=== PATIENT | male | born 2000 | race Hispanic/Latino ===

== ENCOUNTER 2020-05-04 18:18 | Emergency (ER) | payer OTHER, SELFPAY ==
[2020-05-04 19:33] LABS: Absolute Lymphocytes (CBC) 1.5 K/uL (0.7-4.9); Basophils % 0.6 % (0-1.3); Hematocrit 45.1 % (39.6-49.0); Lymphocytes % 23.4 % (15.3-44.8); MPV 10.2 fL (7.6-11.3); RBC Red Blood Cell Count 4.53 M/uL (4.33-5.43)
[2020-05-04] MEDS ORDERED: DIAZEPAM 10 MG/2 ML INJ SYRINGE ONE (19:39)
[2020-05-04 19:43] LABS: ALT/SGPT 16 U/L (12-78); AST/SGOT 18 U/L (15-37); Albumin 4.3 g/dL (3.4-5.0); Alkaline Phosphatase 72 U/L (45-117); BUN Blood Urea Nitrogen 4 mg/dL (7-18); Bicarbonate 26 mmol/L (21-32); Bilirubin Direct 0.1 mg/dL (0-0.2); Bilirubin Total 0.5 mg/dL (0.2-1.0); Glucose Level 80 mg/dL (74-106); Potassium 3.6 mmol/L (3.5-5.1); Sodium Level 141 mmol/L (136-145)
[2020-05-04 19:47] LABS: Urine Blood TRACE (NEG); Urine Glucose NEGATIVE (NEG); Urine Protein 2+ (NEG); Urine Specific Gravity >1.030 (1.005-1.030)
[2020-05-04 19:48] LABS: Protime INR 0.97
[2020-05-04 19:56] LABS: Barbiturates NEGATIVE (NEGATIVE); Benzodiazepines POSITIVE (NEGATIVE); Cocaine NEGATIVE (NEGATIVE); METHAMPHETAM NEGATIVE (NEGATIVE); Methadone NEGATIVE (NEGATIVE); Opiates NEGATIVE (NEGATIVE); Phencyclidine NEGATIVE (NEGATIVE); THC Cannibis POSITIVE (NEGATIVE)
--- NOTE | 2020-05-04 20:29 | EDPHYS ---
Physician Documentation [facility] Name: Adolfo Funk Age: 19 yrs Sex: Male : 2000 Arrival Date: 05/04/2020 Time: 18:39 Bed 4 Private MD: ED Physician Ata Christopher HPI: 05/04 18:43 This 19 yrs old Male presents to ER via EMS with complaints of Xanax jmm Withdrawal. 18:43 The patient presents with a history of multiple seizures, that last 1 minute(s). jmm Seizure Hx: it is unknown whether or not the patient has a previous seizure history. Associated injury: The patient did not suffer any apparent associated injury. This is a 19 year old male that presents to the ED after 2 seizure like episodes. 1 occurring yesterday and 1 occurring just prior to arrival. Patient has d/c xanax 2 days ago. Denies known injury. Denies pain. . Historical: - Allergies: 18:43 No Known Allergies; iw - Immunization history:: Adult Immunizations up to date. - Social history:: Smoking status: Patient denies any tobacco usage or history of. ROS: 18:43 Constitutional: Negative for fever, chills, and weight loss, Cardiovascular: Negative jmm for chest pain, palpitations, and edema, Respiratory: Negative for shortness of breath, cough, wheezing, and pleuritic chest pain, Abdomen/GI: Negative for abdominal pain, nausea, vomiting, diarrhea, and constipation. 18:43 Neuro: Positive for seizure activity. 18:43 All other systems are negative. Exam: 18:43 Constitutional: This is a well developed, well nourished patient who is awake, alert, jmm and in no acute distress. Head/Face: atraumatic. Eyes: EOMI, no conjunctival erythema appreciated ENT: Moist Mucus Membranes Neck: Trachea midline, Supple Chest/axilla: Normal chest wall appearance and motion. Cardiovascular: Regular rate and rhythm. No edema appreciated Respiratory: Normal respirations, no respiratory distress appreciated Abdomen/GI: Non distended, soft Back: Normal ROM Skin: General appearance color normal MS/ Extremity: Moves all extremities, no obvious deformities appreciated, no edema noted to the lower extremities Neuro: Awake and alert, normal gait Psych: Behavior is normal, Mood is normal, Patient is cooperative and pleasant Vital Signs: 18:44 BP 118 / 72; Pulse 92; Resp 16; Temp 98.5; Pulse Ox 97% on R/A; Pain 6/10; iw 20:01 BP 111 / 57; Pulse 58; Resp 18; Pulse Ox 98% on R/A; ea 20:25 BP 106 / 54; Pulse 62; Resp 18; Pulse Ox 99% on R/A; ea 20:45 BP 118 / 50; Pulse 60; Resp 18; Pulse Ox 98% ; ea MDM: 18:52 Patient medically screened. [facility] 20:26 Data reviewed: vital signs, nurses notes. Counseling: I had a detailed discussion with dontae the patient and/or guardian regarding: the historical points, exam findings, and any diagnostic results supporting the discharge/admit diagnosis, lab results, the need for outpatient follow up, to return to the emergency department if symptoms worsen or persist or if there are any questions or concerns that arise at home. ED course: Patient is alert and non toxic in appearance in the ED. Patient will be prescribed valium and is advised to follow up with a pcp for management of taper. Patient is otherwise given strict return precautions. Patient understood and agrees with the plan of care. . 05/04 18:43 Order name: Acetaminophen [facility] 05/04 18:43 Order name: Basic Metabolic Panel [facility] 05/04 18:43 Order name: CBC with Diff [facility] 05/04 18:43 Order name: ETOH Level [facility] 05/04 18:43 Order name: Hepatic Function [facility] 05/04 18:43 Order name: PT-INR; Complete Time: 19:51 [facility] 05/04 18:43 Order name: Ptt, Activated; Complete Time: 19:51 [facility] 05/04 18:43 Order name: Salicylate; Complete Time: 20:01 [facility] 05/04 18:43 Order name: Urine Drug Screen; Complete Time: 20:01 [facility] 05/04 18:44 Order name: Acetaminophen Level; Complete Time: 19:46 [facility] 05/04 18:44 Order name: Basic Metabolic Panel; Complete Time: 19:46 [facility] 05/04 18:44 Order name: CBC with Automated Diff; Complete Time: 19:40 [facility] 05/04 18:44 Order name: Alcohol Serum/Plasma; Complete Time: 19:46 [facility] 05/04 18:44 Order name: Liver (Hepatic) Function; Complete Time: 19:46 [facility] 05/04 18:43 Order name: EKG; Complete Time: 18:44 [facility] 05/04 18:43 Order name: EKG - Nurse/Tech; Complete Time: 19:42 [facility] 05/04 18:43 Order name: IV Saline Lock; Complete Time: 19:21 [facility] 05/04 18:43 Order name: Labs collected and sent; Complete Time: 19:21 [facility] 05/04 18:43 Order name: Urine Dipstick-Ancillary (obtain specimen); Complete Time: 19:42 [facility] 05/04 19:43 Order name: Urine Dipstick--Ancillary (enter results) tt3 05/04 19:43 Order name: Urine Dipstick-Ancillary; Complete Time: 19:48 [facility] Administered Medications: 19:28 Drug: Valium 5 mg Route: IVP; Site: left antecubital; rr5 20:45 Follow up: Response: No adverse reaction ea Point of Care Testing: Blood Glucose: 18:44 Blood Glucose: 122 mg/dL; Ranges: Critical Glucose Levels:Adult <50 mg/dl or >400 mg/dl <40 mg/dl or >180 mg/dl Disposition: 05/05 07:02 Co-signature as Attending Physician, Ata Christopher MD. rn Disposition: 05/04/20 20:28 Discharged to Home. Impression: Adverse effect of benzodiazepines, Epilepsy and recurrent seizures. - Condition is Stable. - Discharge Instructions: Seizure, Adult. - Prescriptions for Valium 5 mg Oral Tablet - take 1 tablet by ORAL route every 8 hours As needed; 20 tablet. - Medication Reconciliation Form, Thank You Letter, Antibiotic Education, Prescription Opioid Use form. - Follow up: Private Physician; When: 2 - 3 days; Reason: Recheck today's complaints, Continuance of care, Re-evaluation by your physician. Signatures: Dispatcher [employer] [facility] Cal Jenkins PA PA jmm Williams, Irene, Ata Lanier RN, MD MD rn Antunez, Elena, RN RN ea Roque, Raymond RN RN rr5 Corrections: (The following items were deleted from the chart) 05/04 20:51 20:28 05/04/2020 20:28 Discharged to Home. Impression: Adverse effect of ea benzodiazepines; Epilepsy and recurrent seizures. Condition is Stable. Forms are Medication Reconciliation Form, Thank You Letter, Antibiotic Education, Prescription Opioid Use. Follow up: Private Physician; When: 2 - 3 days; Reason: Recheck today's complaints, Continuance of care, Re-evaluation by your physician. dontae
--- NOTE | 2020-05-04 20:29 | ER ---
Nurse's Notes [facility] Name: Adolfo Funk Age: 19 yrs Sex: Male : 2000 Arrival Date: 05/04/2020 Time: 18:39 Bed 4 Private MD: Diagnosis: Adverse effect of benzodiazepines;Epilepsy and recurrent seizures Presentation: 05/04 18:39 Chief complaint: Patient states: stopped taking xanax two days ago, feels like he is iw withdrawing, pt reports h/a nausea, chills, gf said he had an episode of seizure like behavior that lasted a minute, had a second one this afternoon. Coronavirus screen: At this time, the client does not indicate any symptoms associated with coronavirus-19. Ebola Screen: Patient negative for fever greater than or equal to 101.5 degrees Fahrenheit, and additional compatible Ebola Virus Disease symptoms Patient denies exposure to infectious person. Patient denies travel to an Ebola-affected area in the 21 days before illness onset. No symptoms or risks identified at this time. Initial Sepsis Screen: Does the patient meet any 2 criteria? No. Patient's initial sepsis screen is negative. Does the patient have a suspected source of infection? No. Patient's initial sepsis screen is negative. Risk Assessment: Do you want to hurt yourself or someone else? Patient reports no desire to harm self or others. Onset of symptoms was May 04, 2020. 18:39 Method Of Arrival: EMS: [facility] iw 18:39 Acuity: ROMINA 3 iw 18:44 Care prior to arrival: IV initiated. 18 GA, in the right forearm, Glucose check: 122. iw Historical: - Allergies: 18:43 No Known Allergies; iw - Immunization history:: Adult Immunizations up to date. - Social history:: Smoking status: Patient denies any tobacco usage or history of. Screenin:34 Abuse screen: Denies threats or abuse. Nutritional screening: No deficits noted. ea Tuberculosis screening: Fall Risk None identified. Assessment: 19:33 General: Appears in no apparent distress. Behavior is calm, cooperative, appropriate ea for age. Pain: Denies pain. Neuro: Level of Consciousness is awake, alert, obeys commands, Oriented to person, place, time. Cardiovascular: Patient's skin is warm and dry. Respiratory: Airway is patent Respiratory effort is even, unlabored, Respiratory pattern is regular, symmetrical. Derm: Skin is pink, warm \T\ dry. 20:25 Reassessment: Patient and/or family updated on plan of care and expected duration. Pain ea level reassessed. Patient is alert, oriented x 3, equal unlabored respirations, skin warm/dry/pink. Vital Signs: 18:44 BP 118 / 72; Pulse 92; Resp 16; Temp 98.5; Pulse Ox 97% on R/A; Pain 6/10; iw 20:01 BP 111 / 57; Pulse 58; Resp 18; Pulse Ox 98% on R/A; ea 20:25 BP 106 / 54; Pulse 62; Resp 18; Pulse Ox 99% on R/A; ea 20:45 BP 118 / 50; Pulse 60; Resp 18; Pulse Ox 98% ; ea ED Course: 18:39 Patient arrived in ED. iw 18:41 Triage completed. iw 18:42 Cal Jenkins PA is PHCP. [facility] 18:42 Ata Christopher MD is Attending Physician. [facility] 18:42 Arm band placed on. iw 19:21 Eve Wellington, RN is Primary Nurse. ea 19:21 Inserted saline lock: 20 gauge in left forearm, using aseptic technique. Blood dh4 collected. 19:34 Patient has correct armband on for positive identification. Bed in low position. Call ea light in reach. 20:50 No provider procedures requiring assistance completed. IV discontinued, intact, ea bleeding controlled, No redness/swelling at site. Pressure dressing applied. Administered Medications: 19:28 Drug: Valium 5 mg Route: IVP; Site: left antecubital; rr5 20:45 Follow up: Response: No adverse reaction ea Point of Care Testing: Blood Glucose: 18:44 Blood Glucose: 122 mg/dL; iw Ranges: Outcome: 20:28 Discharge ordered by . dontae 20:50 Discharged to home ambulatory, with family. ea 20:50 Condition: stable 20:50 Discharge instructions given to patient, Instructed on discharge instructions, follow up and referral plans. medication usage, Demonstrated understanding of instructions, follow-up care, medications, Prescriptions given X 1. 20:51 Patient left the ED. ea Signatures: Cal Jenkins PA PA jmm Williams, Irene, RN RN iw Eve Wellington RN RN ea Roque, Raymond, RN RN rr5 River, Diomedes 4
[2020-05-04 21:22] VITALS: TEMP 98.5
[2020-05-04 21:25] VITALS: BP 118/50; O2SAT 98
[2020-05-11] MEDS ORDERED: IBUPROFEN 100 MG/5 ML UCUP ONE (10:12)
== END 2020-05-04 20:51 | disposition home or self-care (01) ==
LOC: ER 18:18
DX: G40.802 Other epilepsy, not intractable, without status epilepticus (principal); T42.4X5A Adverse effect of benzodiazepines, initial encounter
CPT/HCPCS: 36415; 80048; 80076; 80307; 80320; 80329; 81003; 85025; 85610; 85730; 93005; 96374; 99284; J3360

== ENCOUNTER 2024-11-20 23:48 | Emergency (ER) | payer SELFPAY ==
--- OUTSIDE RECORDS SUMMARY | 2024-11-20 23:52 | XMS REPORT | Continuity of Care Document ---
Author Name Unknown Address [address] [facility] [place] [address] [facility] [place] Address [address] [facility] [address] 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 Phone Pcp, Patient Does Not Have A Primary Care Physic wendy Doctor Unassigned, [place] Attending Clinician U Kalpana Copeland Attending Clinician [phone] Lab, Ang - Db Attending Clinician Unavailable Serena Bah NP Attending Clinician [phone] SERENA BAH Attending Clinician Unavailable SERENA BAH Attending Clinician Unavailable ARCADIO VILLALTA Attending Clinician Unavailable Arcadio Villalta MD Attending Clinician [phone] Doctor Unassigned, [place] Attending Clinician U Matthias Sanchez DO Attending Clinician [phone] MATTHIAS MCGEE Attending Clinician Unavailable MATTHIAS MCGEE Admitting Clinician Unavailable Payers Payer Name Policy Type Policy Number Effective Date Expirati on Date Source Problems Condition Name Condition Details Condition Category Status Onset Date Resolution Date Last Treatment Date Treating Clinician Comments Source No known active problems No known active problems Disease [facility] Vitamin D deficiency Vitamin D deficiency Disease Active [facility] Allergies, Adverse Reactions, Alerts Allergy Name Allergy Type Status Severity Reaction(s) Onset Date Inactive Date Treating Clinician Comments Source NO KNOWN ALLERGIE S Drug Class Active [facility] Social History Social Habit Start Date Stop Date Quantity Comments Source Exposure to SARS-CoV-2 (event) Not sure [facility] Alcoholic beverage intake 2024-04-06 00:00:00 2024-04-06 00:00:00 Ex-drinker (finding) [facility] History of Social function 2024-04-05 00:00:00 2024-04-05 00:00:00 [facility] Tobacco use and exposure 2024-04-05 00:00:00 2024-04-05 00:00:00 Smokeless tobacco non-user [facility] Sex assigned at 2000 00:00:00 2000 00:00:00 [facility] Smoking Status Start Date Stop Date Source Tobacco smoking consumption unknown [facility] Never smoked tobacco [facility] Medications Ordered Medication Name Filled Medication Name Start Date Stop Date Current Medication? Ordering Clinician Indication Dosage Frequency Signature (SIG) Comments Components Source busPIRone 5 mg tablet 04-05 00:00: 00 Yes [id number] 5mg Take 1 tablet by mouth 2 (two) times daily as needed (anxiety). [facility] NaCl 0.9% (NS) bolus infusion 1,000 mL 04-03 21:30: 00 04-03 22:51 :00 No 1000mL at 999 mL/hr, 1,000 mL, IV Infusion, ONCE, 1 dose, On Wed04/03/24 at 1530, LASHAE [facility] NaCl 0.9% (NS) bolus infusion 1,000 mL 04-03 19:45: 00 04-03 20:59 :00 No 1000mL at 999 mL/hr, 1,000 mL, IV Infusion, ONCE, 1 dose, On Wed04/03/24 at 1345, LASHAE [facility] LORazepam (ATIVAN) tablet 1 mg 04-03 19:00: 00 04-03 19:04 :00 No 1mg 1 mg, Oral, ONCE, 1 dose, On Wed04/03/24 at 1300, LASHAE [facility] ondansetron (ZOFRAN (PF)) injection 4 mg 04-03 19:00: 00 04-03 19:11 :00 No 4mg 4 mg, Slow IV Push, ONCE, 1 dose, On Wed04/03/24 at 1300, Administer over 2-5 Minutes, 2 mL [facility] ondansetron 4 mg disintegrat ing tablet 04-03 00:00: 00 Yes [id number] 4mg Take 1 tablet by mouth every 8 (eight) hours as needed for Nausea and Vomiting (N/V). [facility] propranoloL 10 mg tablet 04-03 00:00: 00 04-05 00:00 :00 No [id number] 10mg Take 1 tablet by mouth 2 (two) times daily as needed for Other (anxiety). [facility] dicyclomine (BENTYL) injection 20 mg 2022-03 14:30: 00 02-07 13:42 :00 No 20mg 20 mg, Intramuscu lar, ONCE NOW, 1 dose, On 02/07/23 at 0830, Routine [facility] famotidine (PEPCID (PF)) injection 20 mg 2022-03 14:30: 00 02-07 13:41 :00 No 20mg 20 mg, Slow IV Push, ONCE NOW, 1 dose, On Wed02/07/23 at 0830, LASHAE [facility] NaCl 0.9% (NS) bolus infusion 1,000 mL 2022-03 14:15: 00 02-07 15:32 :00 No 1000mL at 999 mL/hr, 1,000 mL, IV Piggyback, ONCE, 1 dose, On Wed02/07/23 at 0815, STAT [facility] ondansetron (ZOFRAN (PF)) injection 8 mg 2022-03 13:30: 00 02-07 13:40 :00 No 8mg 8 mg, Slow IV Push, ONCE, 1 dose, On Wed02/07/23 at 0730, LASHAE [facility] famotidine (PEPCID) 20 mg tablet 2022-03 00:00: 00 Yes [id number] 20mg Take 1 tablet by mouth in the morning and 1 tablet in the evening. [facility] sucralfate 1 gram tablet 2022-03 00:00: 00 Yes [id number] 1g Take 1 tablet by mouth before meals and at bedtime. [facility] ondansetron 4 mg disintegrat ing tablet 2022-03 00:00: 00 Yes [id number] 4mg Take 1 tablet by mouth every 8 (eight) hours as needed for Nausea and Vomiting (N/V). [facility] hyoscyamine sulfate (LEVSIN/SL) 0.125 mg sublingual tablet 2022-03 00:00: [id number] 2 tablets under the tongue every 6 (six) hours as needed (Abdominal pain or cramping). [facility] Oral Electrolyte s (PEDIALYTE ADVANCED CARE) solution 2022-03 00:00: 00 Yes [id number] 500mL Take 500 mL by mouth every 6 (six) hours. [facility] LORazepam (ATIVAN) injection 1 mg 05-10 21:45: 00 05-10 20:44 :00 No 1mg 1 mg, Slow IV Push, ONCE, 1 dose, On 05/10/21 at 1545, STAT [facility] ondansetron (ZOFRAN (PF)) injection 4 mg 05-10 21:30: 00 05-10 20:27 :00 No 4mg 4 mg, Slow IV Push, ONCE, 1 dose, On 05/10/21 at 1530, LASHAE [facility] LORazepam (ATIVAN) injection 1 mg 05-10 21:30: 00 05-10 20:16 :00 No 1mg 1 mg, Slow IV Push, ONCE, 1 dose, On 05/10/21 at 1530, STAT [facility] LORazepam (ATIVAN) injection 2 mg 2021-05-10 21:15: 00 05-10 20:10 :00 No 2mg 2 mg, Slow IV Push, ONCE, 1 dose, On 05/10/21 at 1515, STAT [facility] iopamidol (ISOVUE 370-500 mL) injection 100 mL 05-10 19:00: 00 05-10 17:50 :00 No [id number] 100mL 100 mL, Intravenou s, ONCE, 1 dose, On 05/10/21 at 1300, Routine [facility] No known medications 05-10 11:17: 16 No [facility] Vital Signs Vital Name Observation Time Observation Value Comments S ource Systolic blood pressure 2024-04-05 16:15:00 120 mm[Hg] [facility] Diastolic blood pressure 2024-04-05 16:15:00 70 mm[Hg] [facility] Heart rate 2024-04-05 16:15:00 71 /min Unive [facility] Body temperature 2024-04-05 16:15:00 36.89 Amira [facility] Body height 2024-04-05 16:15:00 160 cm [facility] Body weight 2024-04-05 16:15:00 71.668 kg [facility] BMI 2024-04-05 16:15:00 27.99 kg/m2 [facility] Oxygen saturation in Arterial blood by Pulse oximetry 2024-04-05 16:15:00 97 /min [facility] Body temperature 2024-04-03 22:52:00 36.78 Amira [facility] Respiratory rate 2024-04-03 22:52:00 16 /min [facility] Oxygen saturation in Arterial blood by Pulse oximetry 2024-04-03 22:52:00 99 /min [facility] Heart rate 2024-04-03 22:52:00 100 /min [facility] Systolic blood pressure 2024-04-03 22:00:00 131 mm[Hg] [facility] Diastolic blood pressure 2024-04-03 22:00:00 70 mm[Hg] [facility] Body height 2024-04-03 18:36:00 162.6 cm [facility] Body weight 2024-04-03 18:36:00 70.308 kg [facility] BMI 2024-04-03 18:36:00 26.61 kg/m2 [facility] Systolic blood pressure 2023-02-07 16:51:00 111 mm[Hg] [facility] Diastolic blood pressure 2023-02-07 16:51:00 71 mm[Hg] [facility] Heart rate 2023-02-07 16:51:00 62 /min Unive [facility] Body temperature 2023-02-07 16:51:00 36.94 Amira [facility] Respiratory rate 2023-02-07 16:51:00 18 /min [facility] Oxygen saturation in Arterial blood by Pulse oximetry 2023-02-07 16:51:00 99 /min [facility] Body height 2023-02-07 13:25:00 160 cm [facility] Body weight 2023-02-07 13:25:00 72.122 kg [facility] BMI 2023-02-07 13:25:00 28.17 kg/m2 [facility] Systolic blood pressure 2021-05-10 23:30:00 100 mm[Hg] [facility] Diastolic blood pressure 2021-05-10 23:30:00 50 mm[Hg] [facility] Heart rate 2021-05-10 23:30:00 99 /min [facility] 2021-05-10 23:30:00 18 /min [facility] Oxygen saturation in Arterial blood by Pulse oximetry 2021-05-10 23:30:00 96 /min [facility] Body temperature 2021-05-10 21:15:00 37.11 Amira [facility] Body height 2021-05-10 17:18:42 162.6 cm [facility] Body weight 2021-05-10 17:18:42 85.276 kg [facility] BMI 2021-05-10 17:18:42 32.27 kg/m2 [facility] Procedures Procedure Date / Time Performed Performing Clinician Source LACTIC ACID WHOLE BLOOD 2024-04-03 21:27:00 Karthik Bah [facility] URINALYSIS 2024-04-03 20:02:00 Serena Bah [facility] URINE DRUG (IMMUNOASSAY) - COMPREHENSIVE DRUG SCREEN W/O REFLEX 2024-04-03 20:02:00 Serena Bah [facility] CREATINE KINASE 2024-04-03 19:09:00 [facility] 2024-04-03 19:09:00 Serena Bah [facility] COMP. METABOLIC PANEL ([id number]) 2024-04-03 19:09:00 Serena Bah [facility] CBC WITH DIFF 2024-04-03 19:09:00 Serena Bah [facility] INFLUENZA A/B RSV COVID NAAT 2024-04-03 19:09:00 Serena Bah [facility] LACTIC ACID WHOLE BLOOD 2024-04-03 19:09:00 Karthik Bah [facility] URINE DRUG (IMMUNOASSAY) - COMPREHENSIVE DRUG SCREEN 2023-02-07 15:32:00 Arcadio Villalta [facility] URINALYSIS 2023-02-07 15:32:00 Arcadio Villalta [facility] COMP. METABOLIC PANEL ([id number]) 2023-02-07 13:31:00 Arcadio Villalta [facility] CBC WITH DIFF 2023-02-07 13:31:00 Arcadio Villalta [facility] CONSENT/REFUSAL FOR DIAGNOSIS AND TREATMENT 2023-02-07 13:18:40 Doctor Unassigned, [place] [facility] EXTERNAL PROVIDER RECORDS 2021-05-21 06:01:00 Doctor Unassigned, [place] [facility] LACTIC ACID WHOLE BLOOD 2021-05-10 20:59:00 Vivek Mcgee [facility] URINALYSIS 2021-05-10 18:39:00 Matthias Mcgee [facility] XR CHEST 1 VW 2021-05-10 18:18:58 Singer [facility] XR TIBIA FIBULA 2 VW LEFT 2021-05-10 18:18:58 Singer [facility] AC PANEL 20 + LACTIC ACID 2021-05-10 17:54:00 Singer [facility] COMP. METABOLIC PANEL ([id number]) 2021-05-10 17:46:00 Singer [facility] ETHANOL 2021-05-10 17:46:00 Singer [facility] CBC WITH DIFF 2021-05-10 17:46[facility] (ID NOW RAPID TESTING) 2021-05-10 17:46:00 Singer [facility] CT TRAUMA ABDOMEN PELVIS W CONTRAST 2021-05-10 17:45:17 [facility] CT MAXILLOFACIAL/MANDIBLE WO CONTRAST 2021-05-10 17:36:39 Singer [facility] CT TRAUMA HEAD WO CONTRAST 2021-05-10 17:35:07 Singer [facility] CT TRAUMA CERVICAL SPINE WO CONTRAST 2021-05-10 17:35:07 [facility] Start Date/Time End Date/Time Encounter Type Admission Type Attending [facility] Facility Care Department Encounter ID Source 2024-08-04 11:44:07 2024-08-04 11:44:07 Outpatient [facility] [id number] Talat Kay 2024-04-14 00:00:00 2024-04-14 17:01:05 Patient Secure Msg Doctor Unassigned, [place] Doctor Unassigned, [place] [facility] 1.2.840.114 350.1.13.10 4.2.7.2.686 [id number] [facility] 2024-04-14 00:00:00 2024-04-14 16:58:32 Patient Secure Msg Doctor Unassigned, [place] Doctor Unassigned, [place] [facility] 1.2.840.114 350.1.13.10 4.2.7.2.686 [id number] [facility] 2024-04-06 00:00:00 2024-04-06 08:19:28 Telephone Kalpana Weiner [facility] 1.2.840.114 350.1.13.10 4.2.7.2.686 [id number] [facility] 2024-04-05 11:30:00 2024-04-05 11:45:00 Dispatch Supervisor Visit Lab, Ang - Db HusamKalpana Lab, Ang - Db [facility] 1.2840.114 350.1.13.10 4.2.7.2.686 [id number] [facility] 2024-04-05 10:00:00 2024-04-05 10:36:43 Office Visit Kalpana Weiner [facility] 1.2840.114 350.1.13.10 4.2.7.2.686 [id number] [facility] 2024-04-03 12:38:00 2024-04-03 16:57:00 Emergency Serena Bah [facility] 1.2840.114 350.1.13.10 4.2.7.2.686 [id number] [facility] 2024-04-03 12:38:00 2024-04-03 16:57:00 Emergency X SERENA BAH PAMALA [facility] ERT [id number] [facility] 2023-02-07 07:28:00 2023-02-07 10:55:00 Emergency X ARCADIO VILLALTA [facility] ERT [id number] [facility] 2023-02-07 07:28:00 2023-02-07 10:55:00 Emergency Arcadio Villalta [facility] 1.2.840.114 350.1.13.10 4.2.7.2.686 [id number] [facility] 2021-05-21 00:00:00 2021-05-21 00:00:00 Orders Only Doctor Unassigned, [place] [facility] 1.2.840.114 350.1.13.10 4.2.7.2.686 [id number] [facility] 2021-05-10 11:17:00 2021-05-10 17:54:00 Emergency Matthias Mcgee [facility] 1.2.840.114 350.1.13.10 4.2.7.2.686 [id number] [facility] 2021-05-10 11:17:00 2021-05-10 17:54:00 Emergency X MATTHIAS MCGEE [facility] ERT [id number] [facility] Results Test Description Test Time Test Comments Results Result Co mments Source [facility] ([id number])2024-04-03 19:48:11* Test Item Value Reference Range Interpretation Comme nts NA (test code = 3580574828) 134 mmol/L 135-145 L K (test code = 2082284201) 3.8 mmol/L 3.5-5.0 CL (test code = 7008183780) 99 mmol/L 98-108 CO2 TOTAL (test code = 9560891926) 16 mmol/L 23-31 L AGAP (test code = 4306408878) 19 2-16 H BUN (test code = 1346464875) 11 mg/dL 7-23 GLUCOSE (test code = 5797909525) 93 mg/dL 70-110 CREATININE (test code = 2160-0) 1.00 mg/dL 0.60-1.25 TOTAL BILI (test code = 9769477575) 1.2 mg/dL 0.1-1.1 H CALCIUM (test code = 6426429433) 9.4 mg/dL 8.6-10.6 T PROTEIN (test code = 3969613883) 8.1 g/dL 6.3-8.2 ALBUMIN (test code = 4241621036) 5.0 g/dL 3.5-5.0 ALK PHOS (test code = 0739250894) 94 U/L 34-122 ALTv (test code = 1742-6) 35 U/L 5-50 AST(SGOT) (test code = 0420070561) 55 U/L 13-40 H eGFR (test code = 49055-5) 107.8 mL/min/1.73m2 CKD-EPI eGFR (2020). Assuming creatinine has been stable day-to-day for at least three months, the eGFR indicates Category G1 (>= 90 mL/min/1.73 m2) Lab Interpretation (test code = 62667-6) [facility] 19:48:11* Test Item Value Reference Range Interpretation Comme nts LIPASE (test code = 5473338418) 70 U/L 0-220 Lab Interpretation (test cod e = 06323-7) Normal [facility] CenterCreat[facility] [id number] 19:47:51* Test Item Value Reference Range Interpretation Comme nts CK (test code = 1046404704) 565 U/L 33-194 H Lab Interpretation (test cod e = 96567-4) [facility]normal [facility] WITH [id number] 19:31:08* Test Item Value Reference Range Interpretation Comme nts WBC (test code = 6690-2) 6.40 4.20-10.70 RBC (test code = 789-8) 5.05 4.26-5.52 HGB (test code = 718-7) 16.5 g/dL 12.2-16.4 H HCT (test code = 4544-3) 46.4 % 38.4-49.3 MCV (test code = 787-2) 91.9 fL 81.7-95.6 MCH (test code = 785-6) 32.7 pg 26.1-32.7 MCHC (test code = 786-4) 35.6 g/dL 31.2-35.0 H RDW-SD (test code = 16373-0) 39.8 fL 38.5-51.6 RDW-CV (test code = 788-0) 11.8 % 12.1-15.4 L PLT (test code = 777-3) 218 150-328 MPV (test code = 76073-1) 12.2 fL 9.8-13.0 NRBC/100 WBC (test code = 0860020843) 0.0 0.0-10.0 NRBC x10^3 (test code = 8158997085) See_Comment [Automated messa ge] The system which generated this result transmitted reference range: 10*3/?L. The reference range was not used to interpret this result as normal/abnormal. GRAN MAT (NEUT) % (test code = 770-8) 70.9 % IMM GRAN % (test code = 3922080496) 0.30 % LYMPH % (test code = 736-9) 15.8 % MONO % (test code = 5905-5) 12.7 % EOS % (test code = 713-8) 0.0 % BASO % (test code = 706-2) 0.3 % GRAN MAT x10^3(ANC) (test code = 8103735975) 4.54 10*3/uL 1.99-6.95 IMM GRAN x10^3 (test code = 6995481204) 0.00-0.06 LYMPH x10^3 (test code = 731-0) 1.01 10*3/uL 1.09-3.23 L MONO x10^3 (test code = 742-7) 0.81 10*3/uL 0.36-1.02 EOS x10^3 (test code = 711-2) 0.06-0.53 L BASO x10^3 (test code = 704-7) 0.01-0.09 Lab Interpretation (test code = 65739-9) Abnormal [facility] Center[facility] Whole [id number] 19:23:09* Test Item Value Reference Range Interpretation Comme nts LACTIC ACID (test code = 4278693238) 2.02 mmol/L 0.50-2.20 Lab Interpretation (test cod e = 13510-2) Normal [facility] WITH [id number] 15:23:11* Test Item Value Reference Range Interpretation Comme nts WBC (test code = 6690-2) 5.58 See_Comment [Automated messa ge] The system which generated this result transmitted reference range: 4.20 - 10.70 10*3/?L. The reference range was not used to interpret this result as normal/abnormal. RBC (test code = 789-8) 4.71 See_Comment [Automated messa ge] The system which generated this result transmitted reference range: 4.26 - 5.52 10*6/?L. The reference range was not used to interpret this result as normal/abnormal. HGB (test code = 718-7) 15.4 g/dL 12.2-16.4 HCT (test code = 4544-3) 44.2 % 38.4-49.3 MCV (test code = 787-2) 93.8 fL 81.7-95.6 MCH (test code = 785-6) 32.7 pg 26.1-32.7 MCHC (test code = 786-4) 34.8 g/dL 31.2-35.0 RDW-SD (test code = 66305-8) 39.9 fL 38.5-51.6 RDW-CV (test code = 788-0) 11.6 % 12.1-15.4 L PLT (test code = 777-3) 248 See_Comment [Automated messa ge] The system which generated this result transmitted reference range: 150 - 328 10*3/?L. The reference range was not used to interpret this result as normal/abnormal. MPV (test code = 41449-2) 11.7 fL 9.8-13.0 NRBC/100 WBC (test code = 9582838383) 0.0 See_Comment [Automated [employer] ssage] The system which generated this result transmitted reference range: 0.0 - 10.0 /100 WBCs. The reference range was not used to interpret this result as normal/abnormal. NRBC x10^3 (test code = 2194846282) See_Comment [Automated messa ge] The system which generated this result transmitted reference range: 10*3/?L. The reference range was not used to interpret this result as normal/abnormal. SEG % (test code = 35052-2) 18 % 33-76 L BAND % (test code = 10941-1) 1 % 0-1 LYMPH % (test code = 12108-2) 72 % 14-54 H MONO % (test code = 52721-1) 8 % 0-4 H EOS % (test code = 47305-7) 1 % 0-3 ANC (test code = 753-4) 1.06 10*3/uL 1.99-6.95 L Lab Interpretation (test code = 23429-8) [facility]normal [facility] (75094)2023-02-07 14:21:28* Test Item Value Reference Range Interpretation Comme nts NA (test code = 8018222702) 145 mmol/L 135-145 K (test code = 9902189475) 3.4 mmol/L 3.5-5.0 L CL (test code = 5092666663) 107 mmol/L 98-108 CO2 TOTAL (test code = 2033520034) 25 mmol/L 23-31 AGAP (test code = 1818179673) 13 2-16 BUN (test code = 2200824451) 7 mg/dL 7-23 GLUCOSE (test code = 9017949892) 96 mg/dL 70-110 CREATININE (test code = 7270249928) 0.91 mg/dL 0.60-1.25 TOTAL BILI (test code = 1841252075) 0.5 mg/dL 0.1-1.1 CALCIUM (test code = 6694670574) 8.9 mg/dL 8.6-10.6 T PROTEIN (test code = 3128025983) 7.3 g/dL 6.3-8.2 ALBUMIN (test code = 4418770663) 4.3 g/dL 3.5-5.0 ALK PHOS (test code = 2179364567) 61 U/L 34-122 ALTv (test code = 1742-6) 23 U/L 5-50 AST(SGOT) (test code = 2005026349) 26 U/L 13-40 eGFR (test code = 02880-3) 121.5 mL/min/1.73m2 CKD-EPI eGFR (2020). Assuming creatinine has been stable day-to-day for at least three months, the eGFR indicates Category G1 (>= 90 mL/min/1.73 m2) Lab Interpretation (test code = 99318-0) [facility]normal [facility]2022-[facility]-12 18:32:00* Test Item Value Reference Range Interpretation Comme nts ALCOHOL (test code = 5247779575) <10 mg/dL RENATO (test code = RENATO) <10 Azvhpqmz18-251 Toxic>100 Depression of DIRECTOR OF CORPORATE STRATEGY>400 Fatalities Reported [facility] PANEL (46702)2021-05-10 18:19:20* Test Item Value Reference Range Interpretation Comme nts NA (test code = 7657547681) 136 mmol/L 135-145 K (test code = 2503911600) 4.7 mmol/L 3.5-5.0 CL (test code = 1646281228) 105 mmol/L 98-108 CO2 TOTAL (test code = 3325129840) 21 mmol/L 23-31 L AGAP (test code = 5578629495) 2-16 BUN (test code = 0428366701) 8 mg/dL 7-23 GLUCOSE (test code = 0445048943) 105 mg/dL 70-110 CREATININE (test code = 2031467579) 0.83 mg/dL 0.60-1.25 TOTAL BILI (test code = 3840548141) 0.6 mg/dL 0.1-1.1 CALCIUM (test code = 3914683648) 8.0 mg/dL 8.6-10.6 L T PROTEIN (test code = 2747613941) 6.0 g/dL 6.3-8.2 L ALBUMIN (test code = 9155737360) 4.0 g/dL 3.5-5.0 ALK PHOS (test code = 7386780514) 48 U/L 34-122 ALTv (test code = 1742-6) 28 U/L 5-50 AST(SGOT) (test code = 2849818567) 24 U/L 13-40 eGFR (test code = 1546212288) mL/min/1.73m2 RENATO (test code = RENATO) Association of Glomerular Filtration Rate (GFR) and Staging of Kidney Disease* + --+ --+ ------+| GFR (mL/min/1.73 m2) ?| With Kidney Damage ?| ?Without Kidney Damage+ --------+ --------+ +| ?>90 ?| ?Stage one ?| ? Normal ?+ ---+ ---+ -------+| ?60-89 ?| ?Stage two ?| ? Decreased GFR ? + --+ --+ ------+| ?30-59 ?| ?Stage three ?| ? Stage three ? + --+ --+ ------+| ?15-29 ?| ?Stage four ? | ? Stage four ?+ ---+ ---+ -------+| ?<15 (or dialysis) ? ?| ?Stage five ? | ? Stage five ?+ ---+ ---+ -------+ *Each stage assumes the associated GFR level has been in effect for at least three months. ?Stages 1 to 5, with or without kidney disease, indicate chronic kidney disease. Notes: Determination of stages one and two (with eGFR >59mL/min/1.73 m2) requires estimation of kidney damage for at least three months as defined by structural or functional abnormalities of the kidney, manifested by either:Pathological abnormalities or Markers of kidney damage (including abnormalities in the composition of the blood or urine or abnormalities in imaging tests). Lab Interpretation (test code = 54713-6) Abnormal [facility] WITH [id number] 18:02:41* Test Item Value Reference Range Interpretation Comme nts WBC (test code = 6690-2) See_Comment [ascentify] The system which generated this result transmitted reference range: 4.20 - 10.70 10*3/?L. The reference range was not used to interpret this result as normal/abnormal. RBC (test code = 789-8) See_Comment [ascentify] The system which generated this result transmitted reference range: 4.26 - 5.52 10*6/?L. The reference range was not used to interpret this result as normal/abnormal. HGB (test code = 718-7) 15.0 g/dL 12.2-16.4 HCT (test code = 4544-3) 45.6 % 38.4-49.3 MCV (test code = 787-2) 101.1 fL 81.7-95.6 H MCH (test code = 785-6) 33.3 pg 26.1-32.7 H MCHC (test code = 786-4) 32.9 g/dL 31.2-35.0 RDW-SD (test code = 48500-9) 46.1 fL 38.5-51.6 RDW-CV (test code = 788-0) 12.4 % 12.1-15.4 PLT (test code = 777-3) See_Comment [Automated messa ge] The system which generated this result transmitted reference range: 150 - 328 10*3/?L. The reference range was not used to interpret this result as normal/abnormal. MPV (test code = 60464-7) 12.1 fL 9.8-13.0 NRBC/100 WBC (test code = 7771262986) See_Comment [Automated [employer] ssage] The system which generated this result transmitted reference range: 0.0 - 10.0 /100 WBCs. The reference range was not used to interpret this result as normal/abnormal. NRBC x10^3 (test code = 4658527775) <0.01 See_Comment [Automated [employer] ge] The system which generated this result transmitted reference range: 10*3/?L. The reference range was not used to interpret this result as normal/abnormal. GRAN MAT (NEUT) % (test code = 770-8) 59.3 % IMM GRAN % (test code = 1116385971) 0.30 % LYMPH % (test code = 736-9) 32.6 % MONO % (test code = 5905-5) 5.8 % EOS % (test code = 713-8) 1.5 % BASO % (test code = 706-2) 0.5 % GRAN MAT x10^3(ANC) (test code = 0477084280) 3.57 10*3/uL 1.99-6.95 IMM GRAN x10^3 (test code = 1876409944) <0.03 0.00-0.06 LYMPH x10^3 (test code = 731-0) 1.96 10*3/uL 1.09-3.23 MONO x10^3 (test code = 742-7) 0.35 10*3/uL 0.36-1.02 L EOS x10^3 (test code = 711-2) 0.09 10*3/uL 0.06-0.53 BASO x10^3 (test code = 704-7) 0.03 10*3/uL 0.01-0.09 Lab Interpretation (test code = 44180-9) Abnormal [facility] Notes Date/Time Note Provider Source 2024-04-05 11:30:00 Images from the original note were not included. Venipuncture collection performed by clean technique on the right anticubitus. Total of 1 attempts were made. Slight pressure and a bandage/dressing were applied to the site(s). The patient experienced no complications. The following specimens were processed according to instructions and sent to [facility] laboratories per lab order on 04/05/2024 : LT BLUE SST 3SST 1 LT GREEN RED LAV 2 PPT DK GREEN (LiHep) DK GREEN (SodH) CHAPA DK BLUE (K2) DK BLUE (S) ACD Blood Culture NIPT/NTD [employer] [facility] 2024-04-03 16:55:33 Pt given printed and verbal discharge instructions regarding nausea, vomiting, dehydration, gastroenteritis, anxiousness, and encouraged hydration. Prescription x2 sent to pharmacy Pt verbalized understanding of instructions, pt awake alert oriented, resp reg unlabored, skin w/d, color appropriate for race, moves all ext well,pt encouraged to follow up with pcp. Advised to seek medical attention for new/prolonged/worsening of symptoms, Symptoms increased vomiting and nausea not controlled by medication No adverse reaction to meds given in ER noted upon discharge PIV d'cd, dressing to site, catheter in tact. Awake, alert oriented, resp reg unlabored, skin w/d, pt leaving ambulatory without assist, in no apparent distress, [employer] Lilia Wellington RN [facility] 2024-04-03 12:35:49 Patient arrived ambulatory c/o of vomiting for the 6 days, diarrhea, body aches and going in between cold sweats and chills. Gunn RN [facility]"
[2024-11-21] MEDS ORDERED: NA CHLORIDE 0.9% 1,000 ML ONE ×2 (00:16→01:36)
[2024-11-21] MEDS ORDERED: FAMOTIDINE 20 MG/2 ML VIAL IV ONE (00:16)
[2024-11-21] MEDS ORDERED: ONDANSETRON 4 MG/2 ML VIAL ONE (00:16)
[2024-11-21] MEDS ORDERED: KETOROLAC 30 MG/ML INJ ONE (00:16)
[2024-11-21 00:39] LABS: Absolute Lymphocytes (CBC) 3.9 K/uL (0.7-4.9); Hematocrit 46.6 % (39.6-49.0); Hemoglobin 15.7 g/dL (13.6-17.9); MCH 31.8 pg (27.0-35.0); MCHC 33.7 g/dL (32.0-36.0); MCV 94.5 fL (80-100); MPV 10.8 fL (7.6-11.3); Nucleated RBC Absolute Count 0.0 (0-0); Nucleated Red Blood Cells % 0.1 % (0-0); RBC Red Blood Cell Count 4.93 M/uL (4.33-5.43); White Blood Count 6.10 thou/uL (4.3-10.9)
[2024-11-21] MEDS ORDERED: DICYCLOMINE HCL 20 MG/2 ML AMP IM ONE (00:46)
[2024-11-21 00:56] LABS: ALT/SGPT 24 U/L (16-61); Albumin 4.0 g/dL (3.4-5.0); Albumin/Globulin Ratio 1.3 (1.1-1.8); Alkaline Phosphatase 68 U/L (45-117); Anion Gap 8.2 mEq/L (5.0-15.0); BUN Blood Urea Nitrogen 8 mg/dL (7-18); Globulin 3.2 g/dL (2.3-3.5); Glucose Level 99 mg/dL (74-106); Lipase 37 U/L (13-75); Potassium 3.2 mEq/L (3.5-5.1)
[2024-11-21 00:57] LABS: AST/SGOT < 10 U/L (15-37)
[2024-11-21 01:04] LABS: Sqamous Epithelial <5 /HPF (None Seen); Urine Culture Reflex Order REFLEXED; Urine Microscopic Reflex YN ORDER UMIC
[2024-11-21 01:29] LABS: Blood Morphology Comment NOT SEEN (NOT SEEN); Differential Total Cells Count 100; Segmented Neutrophils 30 % (40-80)
[2024-11-21] MEDS ORDERED: NA CHLORIDE 0.9% 50 ML ONE (01:36)
[2024-11-21] MEDS ORDERED: CEFTRIAXONE 1000 MG/VIAL ONE (01:36)
--- NOTE | 2024-11-21 01:53 | RAD REPORT ---
EXAM DESCRIPTION: Abdomen Pelvis W Contrast CLINICAL HISTORY: 24 years Male ABD PAIN COMPARISON: None TECHNIQUE: Images were obtained in axial, sagittal, and coronal planes. Intravenous contrast was administered. This exam was performed according to our departmental dose-optimization program which includes use of Automated Exposure Control, adjustment of the mA and/or kV according to patient size and/or us e of iterative reconstruction technique. FINDINGS: No abnormality involving the liver, spleen, pancreas, or adrenal glands bilaterally. Possible sludge within the gallbladder. No obstructing renal or ureteral calculi on the right. No hydronephrosis on the right. 3 mm calculus left ureterovesicular junction with mild to moderate left hydronephrosis and hydroureter. Incompletely distended bladder. Unremarkable prostate gland. Appendix within normal limits. No bowel obstruction, perforation, or inflammation. No abnormality of the abdominal aorta or portal vein. No adenopathy or abnormal fluid collections see n. No acute osseous abnormality. No abnormalities lower lungs bilaterally. IMPRESSION: 3 mm calculus left ureterovesicular junction with mild to moderate left hydronephrosis and hydrourete r. Otherwise unremarkable study. Electronically signed by: Andreea Robert MD 11/21/2024 01:13 AM CDT RP Due to temporary technical issues with the PACS/[employer]ized [employer] reporting system, reports are being jason d by the in-house radiologist without review as a courtesy to ensure prompt reporting the interpreting radiologist is fully responsible for the content of the report. Transcribed Date/Time: 11/21/2024 1:53 AM
[2024-11-21] MEDS ORDERED: TAMSULOSIN 0.4 MG SR CAP ONE (02:19)
--- NOTE | 2024-11-21 02:52 | ER ---
Nurse's Notes [facility] Name: Adolfo Funk Age: 24 yrs Sex: Male : 2000 Arrival Date: 11/20/2024 Time: 23:48 Bed 18 Private MD: Diagnosis: Calculus of ureter-left;Hypokalemia Presentation: 11/20 23:53 Chief complaint: Patient states: left sided abdominal pain beginning yesterday. lg3 Coronavirus screen: Client denies travel out of the [place] in the last 14 days. At this time, the client does not indicate any symptoms associated with coronavirus-19. Ebola Screen: No symptoms or risks identified at this time. Initial Sepsis Screen: Does the patient meet any 2 criteria? No. Patient's initial sepsis screen is negative. Does the patient have a suspected source of infection? No. Patient's initial sepsis screen is negative. Risk Assessment: Do you want to hurt yourself or someone else? Patient reports no desire to harm self or others. Onset of symptoms was November 19, 2024. 23:53 Method Of Arrival: Ambulatory lg3 23:53 Acuity: ROMINA 3 lg3 Triage Assessment: 23:57 General: Appears in no apparent distress. uncomfortable, Behavior is calm, cooperative. lg3 Pain: Complains of pain in left lower quadrant. EENT: No deficits noted. No signs and/or symptoms were reported regarding the EENT system. Neuro: No deficits noted. Stafford Agitation-Sedation Scale (RASS): 0 - Alert and Calm Level of Consciousness is awake, alert, obeys commands, Oriented to person, place, time, situation. Cardiovascular: No deficits noted. Denies chest pain, shortness of breath, Capillary refill < 3 seconds Clubbing of nail beds is absent JVD is absent Patient's skin is warm and dry. Respiratory: No deficits noted. Airway is patent Respiratory effort is even, unlabored, Respiratory pattern is regular, symmetrical. GI: Abdomen is flat, non-distended, Bowel sounds present X 4 quads. Abd is soft X 4 quads Abdomen is tender to palpation in left lower quadrant Reports lower abdominal pain, nausea, vomiting. : No signs and/or symptoms were reported regarding the genitourinary system. Derm: No deficits noted. No signs and/or symptoms reported regarding the dermatologic system. Skin is intact, is healthy with good turgor, Skin is dry, Skin is normal, Skin temperature is warm. Musculoskeletal: No deficits noted. No signs and/or symptoms reported regarding the musculoskeletal system. Circulation, motion, and sensation intact. Range of motion: intact in all extremities. Historical: - Allergies: 23:57 No Known Allergies; lg3 - Home Meds: 23:57 None [Active]; lg3 - PMHx: 23:57 None; lg3 - PSHx: 23:57 None; lg3 - Immunization history:: Adult Immunizations up to date. - Infectious Disease History:: Denies. - Social history:: Smoking status: Reported history of juuling and/or vaping. Patient/guardian denies using alcohol, street drugs. Screenin/26 00:08 [facility] ED Fall Risk Assessment (Adult) History of falling in the last 3 months, al5 including since admission No falls in past 3 months (0 pts) Confusion or Disorientation No (0 pts) Intoxicated or Sedated No (0 pts) Impaired Gait No (0 pts) Mobility Assist Device Used No (0 pt) Altered Elimination No (0 pt) Score/Fall Risk Level 0 - 2 = Low Risk Oriented to surroundings, Maintained a safe environment, Hourly rounding (assess needs \T\ fall precautionary measures) done. Abuse screen: Denies threats or abuse. Denies injuries from another. Nutritional screening: No deficits noted. Tuberculosis screening: No symptoms or risk factors identified. Assessment: 00:08 General: Appears in no apparent distress. uncomfortable, Behavior is calm, cooperative. al5 Pain: Complains of pain in left lower quadrant Pain currently is 10 out of 10 on a pain scale. Neuro: Level of Consciousness is awake, alert, obeys commands, Oriented to person, place, time, situation. Cardiovascular: Capillary refill < 3 seconds Patient's skin is warm and dry. Respiratory: Airway is patent Respiratory effort is even, unlabored, Respiratory pattern is regular, symmetrical. GI: Abdomen is flat, non-distended, Abdomen is tender to palpation in left lower quadrant Abd is rigid in left lower quadrant Reports lower abdominal pain, nausea, vomiting. : No signs and/or symptoms were reported regarding the genitourinary system. EENT: No signs and/or symptoms were reported regarding the EENT system. Derm: Skin is intact, is healthy with good turgor, Skin is pink, warm \T\ dry. normal. Musculoskeletal: Circulation, motion, and sensation intact. Range of motion: intact in all extremities. 01:10 Reassessment: Patient and/or family updated on plan of care and expected duration. Pain kb4 level reassessed. Patient is alert, oriented x 3, equal unlabored respirations, skin warm/dry/pink. pain worse than earlier, notified MD, awaiting orders for medications. 02:15 Reassessment: Patient and/or family updated on plan of care and expected duration. Pain kb4 level reassessed. Patient is alert, oriented x 3, equal unlabored respirations, skin warm/dry/pink. 03:00 Reassessment: notified of upcoming discharge, advised pt to call for ride home, kb4 discharge pending completion of K+ drink and ride. 03:00 Reassessment: Patient and/or family updated on plan of care and expected duration. Pain kb4 level reassessed. Patient is alert, oriented x 3, equal unlabored respirations, skin warm/dry/pink. Patient states feeling better. Patient states symptoms have improved. Vital Signs: 11/20 23:53 BP 130 / 87; Pulse 53; Resp 17 S; Temp 97.9(O); Pulse Ox 99% ; Weight 72.57 kg (R); lg3 Height 5 ft. 2 in. (R); Pain 01/05; 11/21 00:30 BP 135 / 61; Pulse 57; Resp 18; Pulse Ox 100% on R/A; kb4 01:00 BP 112 / 80; Pulse 47; Resp 18; Pulse Ox 93% on R/A; kb4 01:30 BP 120 / 76; Pulse 51; Resp 18; Pulse Ox 100% on R/A; kb4 02:00 BP 115 / 54; Pulse 51; Resp 18; Pulse Ox 100% on R/A; kb4 02:30 BP 118 / 82; Pulse 46; Resp 18; Pulse Ox 100% on R/A; kb4 03:00 BP 108 / 70; Pulse 50; Resp 18; Pulse Ox 100% on R/A; kb4 03:30 BP 98 / 61; Pulse 51; Resp 18; Pulse Ox 100% on R/A; kb4 11/20 23:53 Body Mass Index 29.26 (72.57 kg, 157.48 cm) lg3 11/20 23:53 Pain Scale: Adult lg3 ED Course: 11/20 23:52 Patient arrived in ED. gm2 23:53 Angeli Arreola FNP-C is PHCP. kb 23:53 Roel Werner MD is Attending Physician. kb 23:57 Triage completed. lg3 23:57 Arm band placed on right wrist. lg3 11/21 00:04 Anya Nath RN is Primary Nurse. kb4 00:08 Patient has correct armband on for positive identification. Bed in low position. Call al5 light in reach. Side rails up X 1. Provided Education on: plan of care. 00:08 No provider procedures requiring assistance completed. Inserted saline lock: 20 gauge al5 in right antecubital area, using aseptic technique. ,using aseptic technique. done by KELLY Joyner Blood collected. Flushed with 10 mL NS. 00:13 Radiology exam delayed due to IV insertion attempt and/or patient not having ls3 appropriate IV at this time. 00:47 CT Abd/Pelvis - IV Contrast Only In Process Unspecified. EDMS 01:13 PHCP role handed off by Angeli Arreola FNP-C cp 01:13 Roel Murry PA-C is PHCP. cp 02:50 Amador Vann MD is Referral Physician. cp 04:51 IV discontinued, intact, bleeding controlled, No redness/swelling at site. Pressure kb4 dressing applied. Administered Medications: 00:20 Drug: Famotidine IVP 20 mg IVP once; dilute with 10 mL 0.9% NaCl; give over 2 minutes al5 Route: IVP; Site: right antecubital; 00:20 Drug: TORadol - Ketorolac IVP 15 mg IVP once Route: IVP; Site: right antecubital; al5 00:20 Drug: Ondansetron IVP 4 mg IVP once; over 2 minutes Route: IVP; Site: right antecubital;al5 00:20 Drug: NS 0.9% IV 1000 ml IV at 1 bolus Per protocol; to be given as a bolus over 60 al5 minutes Route: IV; Rate: 1 bolus; Site: right antecubital; 00:52 Drug: Dicyclomine IM 20 mg IM once Route: IM; Site: right gluteus; al5 01:25 Follow up: Response: No adverse reaction kb4 01:46 Drug: NS 0.9% IV 1000 ml IV at 1000 ml once; to be given as a bolus over 60 minutes kb4 Route: IV; Rate: 1000 ml; Site: right antecubital; 01:47 Drug: Droperidol IVP 1.25 mg IVP once Route: IVP; Site: right antecubital; kb4 01:47 Follow up: Response: No adverse reaction kb4 01:47 Drug: Rocephin IV 1 grams IV at calculated rate once; Given slow IV push per pharmacy kb4 instructions Route: IV; Rate: calculated rate; Site: right antecubital; 02:23 Drug: Flomax PO 0.4 mg PO once Route: PO; al5 02:41 Follow up: Response: No adverse reaction kb4 03:35 Drug: Potassium PO Effervescent Tablet 50 mEq PO once; dissolve in 4 ounces of water or kb4 juice Route: PO; 03:55 Follow up: Response: No adverse reaction kb4 Medication: 00:08 VIS not applicable for this client. al5 Outcome: 02:51 Discharge ordered by . ashli 03:55 Discharged to home ambulatory, kb4 03:55 Condition: good 03:55 Discharge instructions given to patient, Instructed on discharge instructions, no drinking with medication, Demonstrated understanding of instructions, medications, Prescriptions given X 4, 04:52 Patient left the ED. kb4 Signatures: Dispatcher [employer] EDVT Angeli Arreola FNP-C FNP-Roel Gomez PA-C PAFunmiC Emmanuelle Garcia ls3 Carie Knight, RN RN lg3 Joanna Foster gm2 Re Gómez RN RN al5 Anya Nath RN RN kb4 Corrections: (The following items were deleted from the chart) 00:28 00:08 GI: Abdomen is flat, non-distended, Reports lower abdominal pain, nausea, al5 vomiting, al5 03:47 01:08 Reassessment: Patient is alert, oriented x 3, equal unlabored respirations, skin kb4 warm/dry/pink. REPORTS SOME PAIN RELIEF FROM IM BENTYL INJECTION Patient states feeling better. Patient states symptoms have improved. kb4 03:47 02:15 Reassessment: Patient and/or family updated on plan of care and expected kb4 duration. Pain level reassessed. Patient is alert, oriented x 3, equal unlabored respirations, skin warm/dry/pink. pain worse than earlier, notified MD, awaiting orders for medications kb4
--- NOTE | 2024-11-21 02:52 | EDPHYS ---
Physician Documentation [facility] Name: Adolfo Funk Age: 24 yrs Sex: Male : 2000 Arrival Date: 11/20/2024 Time: 23:48 Bed 18 Private MD: ED Physician Roel Werner HPI: 11/21 00:15 This 24 yrs old Male presents to ER via Ambulatory with complaints of kb Abdominal Pain. 00:15 Pt is a 24 year old male who presents for left sided abd pain that started yesterday, kb went away around 0330 and came back 1.5 hours lpta. Reports nausea and vomiting. Denies diarrhea, fever, chills. . Historical: - Allergies: 11/20 23:57 No Known Allergies; lg3 - Home Meds: 23:57 None [Active]; lg3 - PMHx: 23:57 None; lg3 - PSHx: 23:57 None; lg3 - Immunization history:: Adult Immunizations up to date. - Infectious Disease History:: Denies. - Social history:: Smoking status: Reported history of juuling and/or vaping. Patient/guardian denies using alcohol, street drugs. ROS: 11/21 00:15 Constitutional: As per HPI kb Exam: 00:15 Constitutional: This is a well developed, well nourished patient who is awake, alert, kb and in no acute distress. Head/Face: Normocephalic, atraumatic. ENT: Moist Mucous membranes Cardiovascular: Regular rate Respiratory: Respirations even and unlabored. No increased work of breathing. Talking in full sentences Skin: Warm, dry with normal turgor. Normal color. MS/ Extremity: Pulses equal, no cyanosis. Neurovascular intact. Full, normal range of motion. Neuro: Awake and alert, GCS 15, oriented to person, place, time, and situation. 00:15 Abdomen/GI: Inspection: abdomen appears normal, Bowel sounds: normal, Palpation: soft, kb moderate abdominal tenderness, in the left upper quadrant and left lower quadrant, 02:19 ECG was reviewed by the Attending Physician. cp Vital Signs: 11/20 23:53 BP 130 / 87; Pulse 53; Resp 17 S; Temp 97.9(O); Pulse Ox 99% ; Weight 72.57 kg (R); lg3 Height 5 ft. 2 in. (R); Pain 01/05; 11/21 00:30 BP 135 / 61; Pulse 57; Resp 18; Pulse Ox 100% on R/A; kb4 01:00 BP 112 / 80; Pulse 47; Resp 18; Pulse Ox 93% on R/A; kb4 01:30 BP 120 / 76; Pulse 51; Resp 18; Pulse Ox 100% on R/A; kb4 02:00 BP 115 / 54; Pulse 51; Resp 18; Pulse Ox 100% on R/A; kb4 02:30 BP 118 / 82; Pulse 46; Resp 18; Pulse Ox 100% on R/A; kb4 03:00 BP 108 / 70; Pulse 50; Resp 18; Pulse Ox 100% on R/A; kb4 03:30 BP 98 / 61; Pulse 51; Resp 18; Pulse Ox 100% on R/A; kb4 11/20 23:53 Body Mass Index 29.26 (72.57 kg, 157.48 cm) lg3 11/20 23:53 Pain Scale: Adult lg3 MDM: 11/20 23:53 Medical Screening Exam initiated kb 11/21 00:15 Data reviewed: vital signs, nurses notes. kb 11/20 23:56 Order name: CBC with Diff; Complete Time: 01:31 kb 11/20 23:56 Order name: CMP; Complete Time: 00:58 kb 11/21 02:25 Interpretation: Normal except: K 3.2; CRE 1.47; GFR 67; AST < 10. cp 11/20 23:56 Order name: Lipase; Complete Time: 00:58 kb 11/21 00:10 Order name: UA Rfx Jorge Cult if indicated; Complete Time: 01:18 al5 11/21 01:18 Interpretation: Normal except: [facility] Extremely Turbid; UBLD 2+; UPH 7.5; UPROT 1+; UUROB cp 2+; UESTR 250; UWBC >50; URBC >50; MUCUS 4+; MAL Cx 1+. 11/21 00:43 Order name: Manual Differential; Complete Time: 01:31 EDMS 11/21 01:21 Order name: Urine Culture EDMS 11/20 23:56 Order name: CT Abd/Pelvis - IV Contrast Only; Complete Time: 01:54 kb 11/21 01:32 Order name: EKG; Complete Time: 01:33 cp 11/20 23:56 Order name: IV Saline Lock; Complete Time: 00:10 kb 11/20 23:56 Order name: Labs collected and sent; Complete Time: 00:10 kb 11/21 01:32 Order name: EKG - Nurse/Tech; Complete Time: 02:17 cp 11/21 01:58 Order name: PO challenge; Complete Time: 02:23 cp EC:19 Rate is 50 beats/min. Rhythm is regular. RI interval is normal. QRS interval is cp prolonged at 120 msec. QT interval is normal. T waves are Inverted in leads III, aVR. Interpreted by me. Reviewed by me. Administered Medications: 00:20 Drug: Famotidine IVP 20 mg IVP once; dilute with 10 mL 0.9% NaCl; give over 2 minutes al5 Route: IVP; Site: right antecubital; 00:20 Drug: TORadol - Ketorolac IVP 15 mg IVP once Route: IVP; Site: right antecubital; al5 00:20 Drug: Ondansetron IVP 4 mg IVP once; over 2 minutes Route: IVP; Site: right antecubital;al5 00:20 Drug: NS 0.9% IV 1000 ml IV at 1 bolus Per protocol; to be given as a bolus over 60 al5 minutes Route: IV; Rate: 1 bolus; Site: right antecubital; 00:52 Drug: Dicyclomine IM 20 mg IM once Route: IM; Site: right gluteus; al5 01:25 Follow up: Response: No adverse reaction kb4 01:46 Drug: NS 0.9% IV 1000 ml IV at 1000 ml once; to be given as a bolus over 60 minutes kb4 Route: IV; Rate: 1000 ml; Site: right antecubital; 01:47 Drug: Droperidol IVP 1.25 mg IVP once Route: IVP; Site: right antecubital; kb4 01:47 Follow up: Response: No adverse reaction kb4 01:47 Drug: Rocephin IV 1 grams IV at calculated rate once; Given slow IV push per pharmacy kb4 instructions Route: IV; Rate: calculated rate; Site: right antecubital; 02:23 Drug: Flomax PO 0.4 mg PO once Route: PO; al5 02:41 Follow up: Response: No adverse reaction kb4 03:35 Drug: Potassium PO Effervescent Tablet 50 mEq PO once; dissolve in 4 ounces of water or kb4 juice Route: PO; 03:55 Follow up: Response: No adverse reaction kb4 Disposition Summary: 11/21/24 02:51 Discharge Ordered Notes: Location: Home cp Problem: new cp Symptoms: have improved cp Condition: Stable cp Diagnosis - Calculus of ureter - left cp - Hypokalemia cp Followup: cp - With: Amador Vann MD - When: 2 - 3 days - Reason: pain continues Discharge Instructions: - Discharge Summary Sheet cp - Potassium Content of Foods cp - Kidney Stones cp - Renal Colic cp - Hypokalemia cp Forms: - Medication Reconciliation Form cp - Antibiotic Education cp - Prescription Opioid Use cp - Patient Portal Instructions cp - Leadership Thank You Letter cp Prescriptions: - Flomax 0.4 mg Oral capsule - take 1 capsule ORAL route daily As needed; 7 capsule; Refills: 0, Product cp Selection Permitted - Zofran 4 mg Oral Tablet - take 1 tablet ORAL route every 12 hours As needed; 20 tablet; Refills: 0, cp Product Selection Permitted - cefpodoxime 200 mg Oral tablet - take 1 tablet ORAL route every 12 hours for 7 days with food; 14 tablet; cp Refills: 0, Product Selection Permitted - Tylenol-Codeine #3 300mg-30mg Oral tablet - take 1 tablet ORAL route every 4 hours As needed; 16 tablet; Refills: 0, cp Product Selection Permitted Signatures: Dispatcher [employer] EDSD Angeli Arreola, REFINISH TECHNICIAN-C REFINISH TECHNICIAN-CkRoel Flores PA-C PA-C Carie Saunders RN RN lg3 Re Gómez, RN RN al5 Anya Nath, RN RN kb4 Corrections: (The following items were deleted from the chart) 00:15 00:15 Constitutional: This is a well developed, well nourished patient who is awake, kb alert, and in no acute distress. kb
[2024-11-21] MEDS ORDERED: POTASSIUM 25 MEQ EFFERV TAB ONE (03:02)
[2024-11-21 08:23] VITALS: TEMP 97.9
[2024-11-21 08:29] VITALS: O2SAT 100
[2024-11-21 08:36] VITALS: BP 98/61
== END 2024-11-21 04:52 | disposition home or self-care (01) ==
LOC: ER 23:48
DX: N20.1 Calculus of ureter (principal); E87.6 Hypokalemia
CPT/HCPCS: 36415; 74177; 80053; 81001; 83690; 85025; 87086; 87088; 93005; J0500; J0696; J1790; J2405; J7030; Q9967